=== PATIENT | female | born 1980 ===

== ENCOUNTER 2016-07-19 09:13 | Inpatient (IN) | payer OTHER ==
[2016-07-19] MEDS ORDERED: MINERAL OIL 25 ML BOT ONE (09:21)
[2016-07-19] MEDS ORDERED: SODIUM CHLORIDE 0.9% FLUSH 10 ML ONE (09:21)
[2016-07-19] MEDS ORDERED: IV START KIT ONE (09:21)
[2016-07-19] MEDS ORDERED: LIDOCAINE Viscous 2% 15 ML UDCUP ONE (09:21)
[2016-07-19] MEDS ORDERED: OXYTOCIN 10 UNITS/ML VIAL ONE (09:21)
[2016-07-19] MEDS ORDERED: PUMP TUBING ONE (09:21)
[2016-07-19] MEDS ORDERED: LIDOCAINE 1% (PRES FREE) 30 ML VIAL ONE (09:21)
[2016-07-19] MEDS ORDERED: OXYTOCIN IN LR 0 ML IV ONE (09:22)
[2016-07-19] MEDS ORDERED: TERBUTALINE SULFATE 1 MG/ML VIAL SUB-Q ONE (09:35)
[2016-07-19] MEDS ORDERED: LACTATED RINGERS 1,000 ML IV SCH ×2 (09:45→12:00)
[2016-07-19 09:52] VITALS: BMI 41.8
[2016-07-19 10:13] LABS: HEMOGLOBIN 13.3 gm/l (12.0-16.0); MEAN CELL VOLUME 85.5 fl (81.0-99.0); MEAN CORPUSCULAR HEMOGLOBIN 29.2 pg (27.0-31.0); MEAN CORPUSCULAR HGB CONC 34.1 g/dl (33.0-37.0)
[2016-07-19] MEDS ORDERED: CEFAZOLIN SODIUM 2 GRAM PREMIX 2 G in Premix (D5W) 100 ml 1 EACH IV PRN (11:56)
[2016-07-19] MEDS ORDERED: SPINAL PROCEDURAL TRAY 1 EACH ONE (12:02)
[2016-07-19] MEDS ORDERED: CEFAZOLIN SODIUM 2 GRAM PREMIX 100 ML IV ONE (12:07)
[2016-07-19] MEDS ORDERED: CITRIC ACID/SODIUM CITRATE 15 ML UDCUP PO ONE (12:12)
[2016-07-19] MEDS ORDERED: FAMOTIDINE 10 MG/ML 2ML VIAL ONE (12:12)
[2016-07-19] MEDS ORDERED: MORPHINE SULFATE (DURAMORPH) 1 MG/ML 10ML AMP ONE (12:12)
[2016-07-19] MEDS ORDERED: FENTANYL 100 MCG/2 ML VIAL ONE (12:12)
--- NOTE | 2016-07-19 12:14 | PCMAN ---
OB Admission Note - History : 5 Term: 3 : 0 Abortions (S&E): 1 Livin EDC:: 07/26/16 Gestational Age (weeks): 39 Days (#/7): 0 Admit Cervical Dilation:: 1 Admit Cervical Effacement (%):: 25 Admit Station:: -3 Admit Presentaton:: breech Membrane Status: Intact Contractions: Yes Contraction Frequency:: occasional Heart Rate:: 150 Status:: cat 1 EFW:: 8 # Summary of Course:: Pt. with GDM, on metformin. Blood sugar well controlled. Also AMA. Other labs wnl. All nst/crystal wnl. Has been breech as well. wanted ECV which was attempted but failed. Now consented for RCS. - Labs Blood Type: O (+) positive Rubella Status: Immune GBS Status: Positive Abnormal Labs: Other (GDM) - Review of Systems No f/c/n/v. Good FM. - Physical Exam General: Afebrile, No Acute Distress Psych/Mental Status: Mood/Affect Appropriate Lungs: Clear to Auscultation Bilaterally Cardiovascular: Regular Rate and Rhythm, No Murmur Abdomen: Normal Bowel Sounds Genitourinary: Normal Female Genitalia Extremities: Full ROM, No Edema Skin: Warm, Dry - Problems (1) Advanced maternal age (AMA) in Status: Acute Code: [id number] Assessment/Plan: Doing well, delivering at 39 weeks. (2) Breech presentation Status: Acute Code: O32.1XX0 Assessment/Plan: Failed ECV. Repeat c section. (3) Gestational diabetes mellitus, class A2 Status: Acute Code: O24.414 Assessment/Plan: Well controlled on metformin. (4) H/O section Status: Acute Code: Z98.891 Assessment/Plan: Opting for RCS given breech presentation and failed ecv. Full PARQ's discussed including but not limited to bleeding, infection, damage to bowel and bladder, hysterectomy, blood transfusion. Pt. desired repeat c section. (5) Obesity Status: Acute Code: E66.9 Assessment/Plan: Healthy diet and exercise discussed. (6) Positive GBS test Status: Acute Code: B95.1 Assessment/Plan: C section, will follow baby closely and give preop abx.
[2016-07-19] MEDS ORDERED: EPHEDRINE SULFATE 50 MG/ML 1ML VIAL ONE (12:34)
[2016-07-19] MEDS ORDERED: ONDANSETRON 4 MG/2ML 2 ML VIAL IV PRN ×2 (13:18→13:57)
[2016-07-19] MEDS ORDERED: NALOXONE HCL 0.4 MG/ML VIAL IV PRN (13:18)
[2016-07-19] MEDS ORDERED: HYDROMORPHONE HCL 1 MG/ML SYRINGE IV PRN (13:18)
[2016-07-19] MEDS ORDERED: ROPIVACAINE PF SCH (13:18)
[2016-07-19] MEDS ORDERED: HYDROMORPHONE HCL 2 MG/ML SYRINGE IV PRN (13:18)
[2016-07-19] MEDS ORDERED: DIPHENHYDRAMINE HCL 50 MG/1 ML VIAL IV PRN ×2 (13:18→13:57)
[2016-07-19] MEDS ORDERED: NALBUPHINE HCL 20 MG/ML AMP IV PRN (13:18)
[2016-07-19] MEDS ORDERED: PROMETHAZINE HCL 25 MG/ML VIAL IM PRN (13:18)
[2016-07-19] MEDS ORDERED: EPHEDRINE SULFATE 50 MG/ML 1ML VIAL IV PRN (13:18)
[2016-07-19] MEDS ORDERED: ON Q PUMP PF SCH (13:18)
[2016-07-19] MEDS ORDERED: ONDANSETRON 4 MG/2ML 2 ML VIAL ONE (13:28)
[2016-07-19] MEDS ORDERED: DIPHENHYDRAMINE HCL 25 MG CAPSULE PO PRN (13:57)
[2016-07-19] MEDS ORDERED: LANOLIN 50 APPLIC/7G TUBE TP PRN (13:57)
--- NOTE | 2016-07-19 13:57 | PCMBPN ---
Brief Post Op Note: Date of Procedure: 07/19/16 Start Time: see anesth record Preoperative Diagnosis: 1. term iup, class A2GDM, breech presentation, AMA, obesity Postoperative Diagnosis: 1. Same Procedure: RCS Surgeon: Pilar Hester MD Assist:Noble Aguiar MD Anesthesia: Km Valverde CRNA Spinal Findings: breech female, normal uterus, tubes/ovaries/placenta. Condition: stable Complications: none IV Fluids: 2000 mLs of LR Urine Output: 50 mLs Estimated Blood Loss: 700 mLs Tourniquet Time: N/A Specimens: N/A Implants: n/a Drains: [N/A]
--- NOTE | 2016-07-19 14:24 | PDOC36 ---
Provider Note Subject: Pt. presented for ECV. SHe is a 35 y.o. A1 at 39 weeks with her baby in breech presentation. Her has been complicated by AMA, Class A2GDM with good control on metformin, breech presentation, obesity, h/o c section X 1 for breech. Fully informed consent was obtained for ECV with PARQ's discussed including but not limited to bleeding, placental abruption, cord detachment, SROM, abnormal heart tones all possibly requiring immediate c section. Pt. understood the risks and agreed to proceed. She was given sub-q terb and US confirmed breech presentation, placenta in L upper uterus/fundus and adequate fluid. Attempt was made to move the to no avail. Pt. tolerated attempts well. Infant also had Cat 1 FHT before and after ECV attempts. Pt. was then consented for RCS.
[2016-07-19] MEDS: KETOROLAC TROMETHAMINE 30 MG/ML 1 ML VIAL IV SCH ×2 (15:13→21:13)
[2016-07-19] MEDS: LACTATED RINGERS 1,000 ML IV SCH ×2 (15:13→18:30)
--- NOTE | 2016-07-19 16:26 | OP ---
ANTONI GONZALEZ [id number] : 1980 DATE OF OPERATION: July 19, 2016 PREOPERATIVE DIAGNOSES: 1. Term intrauterine . 2. History of section times one. 3. Gestational diabetes A2 on metformin. 4. Breech presentation. 5. Failed external version. 6. Advanced maternal age. POSTOPERATIVE DIAGNOSES: 1. Term intrauterine . 2. History of section times one. 3. Gestational diabetes A2 on metformin. 4. Breech presentation. 5. Failed external version. 6. Advanced maternal age. PROCEDURE: REPEAT SECTION. SURGEON: Pilar Hester M.D. LINING PRINTER: Aman Aguiar M.D. ANESTHESIA: Spinal anesthesia by Km Valverde C.R.N.A. BRIEF DESCRIPTION: This is a 35-year-old 5, para 3, now para 4, who presented to [facility] for external cephalic version and induction of labor secondary to advanced maternal age and class A2 gestational diabetes. She failed external cephalic version which was being performed for breech presentation and was then taken for repeat section. DESCRIPTION: The patient was taken to the operating room, where a spinal anesthesia was placed without difficulty. She was then prepped and draped for a sterile procedure in the usual fashion. A Pfannenstiel incision was made sharply through a previous scar through the subcutaneous tissue to the level of the rectus fascia. The rectus fascia was then transversely incised with Michelle scissors. The anterior fascia was grasped with Deana clamps and dissected free from the underlying rectus muscles with blunt dissection and Michelle scissors. This was also performed inferiorly. There was significant diastasis noted and the anterior parietal peritoneum was entered with blunt dissection. Gentle traction was applied for excellent visualization of the uterus. The vesicouterine peritoneum was then grasped and transversely incised using Metzenbaum scissors. A bladder flap was developed and a bladder blade was re-placed. The uterus was then entered sharply with return of lightly meconium stained fluid, and the incision was extended laterally with gentle traction. The buttocks were noted to be in the uterine incision and the feet were grasped and elevated through the uterine incision atraumatically. A wet towel was then placed on the sacrum and the infant was delivered to the level of the scapula. The right arm was then delivered. The infant was then rotated for the left arm to be delivered, and the head was then easily delivered with moderate fundal pressure. The head was flexed at the same time as the fundal pressure. There was note of a body cord as the umbilical cord was draped around the body and that was easily removed. The oropharynx was bulb suctioned and delayed cord clamping of one minute was performed. The cord was then cut and the infant was passed to the RN for resuscitation. The placenta was then delivered manually intact with a three vessel cord. The uterus was then delivered onto the abdominal wall and the remaining bloody contents were wiped free with a clean, dry lap. All membranes were removed. The uterine incision was then grasped with Ring forceps and closed in the usual fashion. A few interrupted sutures were then placed for excellent hemostasis of the uterus. The tubes and ovaries appeared within normal limits. The remaining blood contents were wiped free with a clean dry lap and the uterus was then elevated and placed back into the abdominal cavity without difficulty. The gutters and incision were once again cleaned and inspected and appeared within normal limits. There was excellent hemostasis. The parietal perineum was then closed with #2-0 Vicryl running suture in the usual fashion. The fascia was then closed with #0 Vicryl running suture in the usual fashion after no subfascial bleeding was assured. The subcutaneous tissue showed excellent hemostasis and the skin was closed with a Stef needle without difficulty. All sponge and needle counts were reported as correct. Estimated blood loss was 700 mL. Fluids given, 2 liters. Urine output 50 mL. Patient was transported to postoperative recovery room in excellent condition.
[2016-07-19] MEDS ORDERED: KETOROLAC TROMETHAMINE 30 MG/ML 1 ML VIAL IV PRN (19:00)
[2016-07-19] MEDS ORDERED: SODIUM CHLORIDE 0.9% FLUSH 20 ML ONE (20:52)
[2016-07-19] MEDS: DOCUSATE SODIUM 100 MG CAPSULE PO SCH (21:13)
[2016-07-20] MEDS ORDERED: SODIUM CHLORIDE 0.9% FLUSH 20 ML ONE (02:56)
[2016-07-20] MEDS: KETOROLAC TROMETHAMINE 30 MG/ML 1 ML VIAL IV SCH ×2 (03:10→09:40)
[2016-07-20 07:18] LABS: HEMATOCRIT 34.3 % (37.0-47.0); HEMOGLOBIN 11.6 gm/l (12.0-16.0)
[2016-07-20] MEDS: LACTATED RINGERS 1,000 ML IV SCH (08:19)
[2016-07-20] MEDS: DOCUSATE SODIUM 100 MG CAPSULE PO SCH ×2 (09:35→20:56)
[2016-07-20] MEDS: PRENATAL VIT/FE FUMARATE/FA 1 TABLET PO SCH (09:35)
[2016-07-20] MEDS: FERROUS SULFATE (65 Fe) 325 MG TABLET PO SCH (09:35)
[2016-07-20] MEDS ORDERED: SODIUM CHLORIDE 0.9% FLUSH 10 ML ONE (09:37)
[2016-07-20] MEDS: OXYCODONE/ACETAMINOPHEN 5/325 MG TABLET PO PRN ×3 (09:39→20:56)
[2016-07-20] MEDS: IBUPROFEN 600 MG TABLET PO PRN (16:56)
--- NOTE | 2016-07-20 23:53 | PDOC44 ---
- Subjective Day: 1 (POD1 s/p prim LTCS) Doing well. Able to ambulate, void and eat. No fever, chills, CP or leg pain. Reports Flatus, Reports Pain Tolerable, Reports , Reports Tolerating Regular Diet, Denies Nausea, Denies Vomiting - Objective Temp Pulse Resp BP Pulse Ox 98.3 F 72 20 114/56 98 07/20/16 20:46 07/20/16 20:46 07/20/16 20:46 07/20/16 20:46 07/19/16 14:42 Lab Results 07/20/16 06:23 Hgb 11.6 L Hct 34.3 L Current Medications Generic Name Dose Route Start Last Admin Trade Name Freq PRN Reason Stop Dose Admin Diphenhydramine HCl 25 - 50 mg 07/19/16 13:57 Benadryl PO Q6H PRN Itching (Mild/Moderate) Diphenhydramine HCl 25 - 50 mg 07/19/16 13:57 Benadryl IV Q6H PRN Itching (Severe) Docusate Sodium 100 mg 07/19/16 21:00 07/20/16 20:56 Colace PO 100 mg BID TONNY Administration Emollient Ointment 1 applic 07/19/16 13:57 Pze-X-Yxncct TP PRN PRN sore nipples Ferrous Sulfate 325 mg 07/20/16 09:00 07/20/16 09:35 Ferrous Sulfate PO 325 mg DAILY TONNY Administration Lactated Ringer's 1,000 mls @ 125 mls/hr 07/19/16 14:00 07/20/16 08:19 Lactated Ringers IV Not Given .Q8H TONNY Ibuprofen 600 mg 07/19/16 13:57 07/20/16 16:56 Motrin PO 600 mg Q6H PRN Administration Pain Ketorolac Tromethamine 30 mg 07/19/16 19:00 Toradol IV Q6H PRN Pain (Mild/Moderate) Multivi/Iron Carb/Fe Sulf/FA/Prenat 1 tab 07/20/16 09:00 07/20/16 09:35 Plus PO 1 tab DAILY TONNY Administration Ondansetron HCl 4 mg 07/19/16 13:57 Zofran IV Q6H PRN Nausea/Vomiting Oxycodone/Acetaminophen 1 - 2 tab 07/19/16 13:57 07/20/16 20:56 Percocet 5/325 PO 1 tab Q4H PRN Administration Pain (Moderate) - Physical Exam General: Afebrile, No Acute Distress Psych/Mental Status: Mood/Affect Appropriate, Judgment/Insight Intact, Bonding Well Neurological: Grossly Intact, Alert, Normal Speech Lungs: Clear to Auscultation Bilaterally Cardiovascular: Regular Rate and Rhythm Breast: Soft Fundus: Firm, Midline, At Umbilicus Extremities: Full ROM Skin: Normal Color, Warm, Dry, Intact, No Rash Wound CATTLE DRIVER: Dressing Clean/Dry/Intact - Problems:Assessment/Plan (1) Advanced maternal age (AMA) in Status: Acute Assessment/Plan: Delivered at 39 weeks. (2) Breech presentation Qualifiers: Fetus number: single or unspecified fetus Qualifier Code: (O32.1XX0) Maternal care for breech presentation, not applicable or unspecified Status : Acute Assessment/Plan: Failed ECV. Repeat c section. (3) Gestational diabetes mellitus, class A2 Status: Acute Assessment/Plan: Well controlled on metformin. Will need DM eval at 6 wk pp (4) Obesity Status: Acute Assessment/Plan: Healthy diet and exercise discussed. (5) Positive GBS test Status: Acute Assessment/Plan: given preop abx. (6) deliv due to previous difficult deliv, deliv, curr hospitaliz Status: Acute Assessment/Plan: Doing well POD#1 s/p repeat LTCS after failed ECV Routine post csxn care Support BF Anticip DC home PPD#3, however, if pt is feeling well would like DC home on POD# 2 Disposition: Stable
[2016-07-21] MEDS: IBUPROFEN 600 MG TABLET PO PRN ×4 (01:42→20:27)
[2016-07-21] MEDS: OXYCODONE/ACETAMINOPHEN 5/325 MG TABLET PO PRN ×4 (01:42→17:28)
--- NOTE | 2016-07-21 14:21 | PDOC44 ---
- Subjective Day: 2 Reports Pain Tolerable, Reports - Objective Temp Pulse Resp BP Pulse Ox 98.6 F 60 16 126/61 98 07/21/16 08:20 07/21/16 08:20 07/21/16 08:20 07/21/16 08:20 07/19/16 14:42 Current Medications Generic Name Dose Route Start Last Admin Trade Name Freq PRN Reason Stop Dose Admin Diphenhydramine HCl 25 - 50 mg 07/19/16 13:57 Benadryl PO Q6H PRN Itching (Mild/Moderate) Diphenhydramine HCl 25 - 50 mg 07/19/16 13:57 Benadryl IV Q6H PRN Itching (Severe) Docusate Sodium 100 mg 07/19/16 21:00 07/20/16 20:56 Colace PO 100 mg BID TONNY Administration Emollient Ointment 1 applic 07/19/16 13:57 [id number] TP PRN PRN sore nipples Ferrous Sulfate 325 mg 07/20/16 09:00 07/20/16 09:35 Ferrous Sulfate PO 325 mg DAILY TONNY Administration Lactated Ringer's 1,000 mls @ 125 mls/hr 07/19/16 14:00 07/20/16 08:19 Lactated Ringers IV Not Given .Q8H TONNY Ibuprofen 600 mg 07/19/16 13:57 07/21/16 12:43 Motrin PO 600 mg Q6H PRN Administration Pain Ketorolac Tromethamine 30 mg 07/19/16 19:00 Toradol IV Q6H PRN Pain (Mild/Moderate) Multivi/Iron Carb/Fe Sulf/FA/Prenat 1 tab 07/20/16 09:00 07/20/16 09:35 Plus PO 1 tab DAILY TONNY Administration Ondansetron HCl 4 mg 07/19/16 13:57 Zofran IV Q6H PRN Nausea/Vomiting Oxycodone/Acetaminophen 1 - 2 tab 07/19/16 13:57 07/21/16 12:43 Percocet 5/325 PO 1 tab Q4H PRN Administration Pain (Moderate) - Physical Exam General: Afebrile Psych/Mental Status: Mood/Affect Appropriate, Judgment/Insight Intact, Bonding Well Neurological: Oriented x 4 Lungs: Clear to Auscultation Bilaterally, Normal Air Movement Cardiovascular: Regular Rate and Rhythm Fundus: Firm, Below Umbilicus Wound SCORING MACHINE OPERATOR: Well Approximated - Problems:Assessment/Plan (1) Breech presentation Qualifiers: Fetus number: single or unspecified fetus Qualifier Code: (O32.1XX0) Maternal care for breech presentation, not applicable or unspecified Status : Acute Assessment/Plan: Failed ECV. Repeat c section. (2) deliv due to previous difficult deliv, deliv, curr hospitaliz Status: Acute Assessment/Plan: Doing well POD#2 s/p repeat LTCS after failed ECV Routine post csxn care Support BF Anticip DC home PPD#3 Disposition: Stable
[2016-07-21] MEDS: DOCUSATE SODIUM 100 MG CAPSULE PO SCH ×2 (19:08→20:27)
[2016-07-21] MEDS: PRENATAL VIT/FE FUMARATE/FA 1 TABLET PO SCH (19:09)
[2016-07-21] MEDS: FERROUS SULFATE (65 Fe) 325 MG TABLET PO SCH (19:09)
[2016-07-22] MEDS: IBUPROFEN 600 MG TABLET PO PRN (05:32)
[2016-07-22] MEDS: OXYCODONE/ACETAMINOPHEN 5/325 MG TABLET PO PRN (05:32)
[2016-07-22 07:32] VITALS: BP 147/79
[2016-07-22] MEDS: PRENATAL VIT/FE FUMARATE/FA 1 TABLET PO SCH (07:32)
[2016-07-22] MEDS: DOCUSATE SODIUM 100 MG CAPSULE PO SCH (07:33)
[2016-07-22] MEDS: FERROUS SULFATE (65 Fe) 325 MG TABLET PO SCH (07:33)
--- NOTE | 2016-07-22 10:35 | PDOC39B ---
Hospital Course: ADMIT DATE: 07/19/16 DISCHARGE DATE: 07/22/16 ADMISSION DIAGNOSES: Breech presentation and failed external cephalic version PROCEDURES: HISTORY OF PRESENT ILLNESS/HOSPITAL COURSE: 35 year old G5 T3 L3 at 39 weeks 0 days with history of cesarian section x 1 followed by 2 VBACs, AMA, GDM on medication and breech presentation presented for an external cephalic version which failed and which was followed by a Cesarian Section. Please refer to details of that surgery as dictated by Dr. Hester. By day of discharge the patient is ambulating, eating, voiding, and passing flatus without difficulty. Pain is controlled and lochia is appropriate. She is . - Physical Exam Vital Signs: Temp Pulse Resp BP Pulse Ox 98.6 F 67 16 147/79 98 07/22/16 07:26 07/22/16 07:26 07/22/16 07:26 07/22/16 07:26 07/19/16 14:42 General: Afebrile, No Acute Distress Neurological: Alert, Oriented x 4 Lungs: Clear to Auscultation Bilaterally Cardiovascular: Regular Rate and Rhythm Fundus: Firm, Midline Extremities: Full ROM, No Edema Skin: Normal Color, Warm, Dry, Intact, No Rash Wound: Dressing Clean/Dry/Intact, Well Approximated - Discharge Diagnosis (1) deliv due to previous difficult deliv, deliv, curr hospitaliz Status: Acute Assessment/Plan: Doing well POD#3 s/p repeat LTCS after failed ECV Nl exam and vitals. +BF. - Discharge Plan Condition: Good Disposition: Home Prescriptions: Docusate Sodium [COLACE 100 MG CAPSULE (SHF)] 100 mg PO BID PRN #60 cap PRN Reason: Constipation Ibuprofen [Motrin] 800 mg PO TID PRN #30 tablet PRN Reason: Pain Oxycodone HCl/Acetaminophen [PERCOCET 5/325 MG TABLET (SHF)] 1 tab PO Q4-6H PRN #20 tab PRN Reason: Severe Pain Follow-Up: Pilar Hester MD [Staff Physician] - In 2 weeks
== END 2016-07-22 11:50 | disposition home or self-care (01) | DRG 766 ==
LOC: FBC 09:13 → EDSTATUS 07-26 22:04
PROVIDERS: ADMIT Family Medicine; ATTEND Family Medicine
PROC: 10D00Z1 Extraction of Products of Conception, Low, Open Approach (ICD-10-PCS; principal; 2016-07-19)
PROC: 10S0XZZ Reposition Products of Conception, External Approach (ICD-10-PCS; 2016-07-19)
PROC: 3E033VJ Introduction of Other Hormone into Peripheral Vein, Percutaneous Approach (ICD-10-PCS; 2016-07-19)
DX: O24.425 Gestational diabetes mellitus in childbirth, controlled by oral hypoglycemic drugs (principal); O09.523 Supervision of elderly multigravida, third trimester; O09.43 Supervision of pregnancy with grand multiparity, third trimester; O32.1XX0 Maternal care for breech presentation, not applicable or unspecified; O34.211 Maternal care for low transverse scar from previous cesarean delivery; O99.214 Obesity complicating childbirth; E66.9 Obesity, unspecified; O61.0 Failed medical induction of labor; Z3A.39 39 weeks gestation of pregnancy; Z37.0 Single live birth